=== PATIENT | male | born 2000 | race Caucasian/White ===

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

== ENCOUNTER → 2018-05-05 | Outpatient (CLI) | payer BC, OTHER ==
--- NOTE | 2018-05-05 16:39 | RAD ---
Examination: VENOUS LOWER EXTREMITY LEFT History: Previous left lower leg DVT. On anticoagulation. Comparison/Correlation: 09/28/2017 left lower extremity duplex venous Doppler ultrasound exam Findings: Duplex left lower extremity venous Doppler ultrasound exam was performed. Grayscale imaging was performed. Compression and augmentation performed. Incidental note is made of a patent right common femoral vein. Left common femoral vein is patent without thrombus. Echogenic thrombus is identified involving the left proximal, mid, and distal femoral vein as well as the popliteal vein. It is nonocclusive. There is no thrombus deathly identified to involve the calf veins. Decreased associated compressibility in the distribution of clot is noted. Impression: Left lower extremity deep venous thrombus is chronic in appearance and improved compared with previous exam. It is nonocclusive. Electronically signed by: Albin Rizzo MD (05/05/2018 4:10 PM) [facility]
== END | disposition home or self-care (01) ==
LOC: US 10:36
PROVIDERS: ATTEND Internal Medicine Hematology & Oncology
DX: I82.492 Acute embolism and thrombosis of other specified deep vein of left lower extremity (principal); Z88.0 Allergy status to penicillin; Z88.2 Allergy status to sulfonamides
CPT/HCPCS: 93971

== ENCOUNTER → 2018-07-25 | Outpatient (CLI) | payer BC ==
--- NOTE | 2018-07-25 16:40 | RAD ---
2 views of the right ankle compared to similar study dated similar second 2015 for ankle pain, injury around Thanksgiving to the lateral side of the ankle. FINDINGS: There is no fracture, dislocation, or acute osseous abnormality identified. The ankle mortise is symmetric. No radiopaque foreign bodies are seen. No significant joint effusion. No significant degenerative changes. IMPRESSION: 1. No acute osseous abnormality of the right ankle. Electronically signed by: Nikita Licona MD (07/25/2018 4:36 PM) [id number]
== END | disposition home or self-care (01) ==
LOC: RAD 11:16
PROVIDERS: ATTEND Physician Assistant
DX: S99.811A Other specified injuries of right ankle, initial encounter (principal); M25.571 Pain in right ankle and joints of right foot; X58.XXXA Exposure to other specified factors, initial encounter; Y93.89 Activity, other specified; Y92.89 Other specified places as the place of occurrence of the external cause; Y99.8 Other external cause status
CPT/HCPCS: 73600